=== PATIENT | female | born 1980 | race Caucasian/White ===

== ENCOUNTER 2017-07-30 22:28 | Emergency (ER) | payer SELFPAY ==
[~2017-07-30] VITALS: Ht 167.6 cm; Wt 78.0 kg
[2017-07-30 22:37] VITALS: Ht 167.6 cm; Wt 78.0 kg
[2017-07-31 00:19] LABS: URINE BLOOD (Dip) POC Negative (NEGATIVE)
[2017-07-31] MEDS ORDERED: SOD CHLORIDE 0.9% 1,000 ML IV STA (00:19)
[2017-07-31] MEDS ORDERED: morphine 4 MG/ML VIAL IV STA ×2 (00:19→01:26)
[2017-07-31] MEDS ORDERED: ONDANSETRON 4 MG INJ IV STA (00:19)
[2017-07-31 01:36] LABS: BASOPHIL # 0.1 10^3/ul (0.0-0.1); BASOPHILS % 0.5 % (0.0-2.0); EOSINOPHILS # 0.3 10^3/ul (0.0-0.5); EOSINOPHILS % 2.8 % (0.0-7.0); HEMATOCRIT 42.9 % (37.0-47.0); HEMOGLOBIN 15.2 g/dl (12.0-16.0); LYMPHOCYTES # 4.4 10^3/ul (0.8-2.9); MEAN CORPUSCULAR HEMOGLOBIN 32.6 pg (29.0-33.0); MEAN CORPUSCULAR HGB CONC 35.4 g/dl (32.0-37.0); MEAN CORPUSCULAR VOLUME 92.1 fl (82.0-101.0); MEAN PLATELET VOLUME 10.7 fl (7.4-10.4); MONOCYTES % 8.5 % (0.0-11.0); NEUTROPHIL # 6.3 10^3/ul (1.6-7.5); NEUTROPHILS % 51.9 % (39.0-77.0); PLATELET COUNT 310 10^3/UL (140-415); RED BLOOD COUNT 4.66 10^6/ul (4.20-5.40); RED CELL DISTRIBUTION WIDTH 12.1 % (11.5-14.5); WHITE BLOOD COUNT 12.2 10^3/ul (4.8-10.8)
[2017-07-31 01:38] LABS: ADD UMIC NO; UR ASCORBIC ACID NEGATIVE (NEGATIVE); UR BILIRUBIN (Dip) NEGATIVE (NEGATIVE); UR BLOOD (Dip) NEGATIVE (NEGATIVE); UR CLARITY CLEAR (CLEAR); UR COLOR STRAW (YELLOW); UR GLUCOSE (Dip) NEGATIVE (NEGATIVE); UR KETONES (Dip) NEGATIVE (NEGATIVE); UR LEUKOCYTE ESTERASE (Dip) NEGATIVE Leu/ul (NEGATIVE); UR NITRITE (Dip) NEGATIVE (NEGATIVE); UR SPECIFIC GRAVITY (Dip) 1.005 (1.003-1.030); UR TOTAL PROTEIN (Dip) NEGATIVE (NEGATIVE); UR UROBILINOGEN (Dip) NEGATIVE (NEGATIVE)
--- NOTE | 2017-07-31 01:41 | ERD ---
ER Documentation Chief Complaint Chief Complaint c/o epigastric pain x 1 wk. HPI 36-year-old female presenting to emergency department with abdominal pain and abdominal distention. Patient reports pain starts in the epigastric region and radiates to pelvic area. Patient denies fever chills. No vomiting or diarrhea. Patient states she feels bloated and feels "something moving inside of her." Patient states her last menstrual period was approximately 5 years ago and states she had her uterus removed. Limited history due to patient's condition. ROS All systems reviewed and are negative except as per history of present illness. Medications Home Meds Active Scripts Tamsulosin Hcl* (Flomax*) 0.4 Mg Cap.er.24h, 0.4 MG PO DAILY, #7 CAP Prov:NORRIS KILPATRICK NP 07/31/17 Ibuprofen* (Motrin*) 600 Mg Tab, 600 MG PO Q6, #30 TAB Prov:NORRIS KILPATRICK NP 07/31/17 Hydrocodone/Acetaminophen ([place] 5-325 Tablet) 1 Each Tablet, 1 TAB PO Q6H Y for PAIN, #15 TAB Prov:NORRIS KILPATRICK NP 07/31/17 Allergies Allergies: Coded Allergies: No Known Allergy (Unverified , 07/30/17) PMhx/Soc Medical and Surgical Hx: pt denies Medical Hx, pt denies Surgical Hx History of Surgery: No Anesthesia Reaction: No Hx Neurological Disorder: No Hx Respiratory Disorders: No Hx Cardiac Disorders: No Hx Psychiatric Problems: No Hx Miscellaneous Medical Probl: No Hx Alcohol Use: No Hx Substance Use: No Hx Tobacco Use: No Smoking Status: Never smoker Physical Exam Vitals Vital Signs Date Time Temp Pulse Resp B/P Pulse Ox O2 Delivery O2 Flow Rate FiO2 07/31/17 02:46 98.4 108 16 113/63 99 Room Air 07/30/17 22:37 98.4 119 20 119/82 97 Physical Exam Const: Alert, in acute distress, pacing around room Head: Atraumatic Eyes: Normal Conjunctiva ENT: Normal External Ears, Nose and Mouth. Neck: Full range of motion..~ No meningismus. Resp: Clear to auscultation bilaterally Cardio: Regular rate and rhythm, no murmurs Abd: Soft, Distention. Normal bowel sounds.Negative Rubio sign. No McBurney point tenderness.No rebound tenderness. No peritoneal signs. Skin: No petechiae or rashes Back: No midline or flank tenderness Ext: No cyanosis, or edema Neur: Awake and alert Psych: Normal Mood and Affect Result Diagram: 07/31/17 0045 07/31/17 0045 Results 24 hrs Laboratory Tests Test 07/31/17 00:17 07/31/17 00:25 07/31/17 00:45 Bedside Urine pH (LAB) 6.0 Bedside Urine Protein (LAB) Negative Bedside Urine Glucose (UA) Negative Bedside Urine Ketones (LAB) Negative Bedside Urine Blood Negative Bedside Urine Nitrite (LAB) Negative Bedside Urine Leukocyte Esterase (L Negative Urine Color STRAW Urine Clarity CLEAR Urine pH 6.0 Urine Specific [place] 1.005 Urine Ketones NEGATIVEmg/dL Urine Nitrite NEGATIVEmg/dL Urine Bilirubin NEGATIVEmg/dL Urine Urobilinogen NEGATIVEmg/dL Urine Leukocyte Esterase NEGATIVELeu/ul Urine Hemoglobin NEGATIVEmg/dL Urine Glucose NEGATIVEmg/dL Urine Total Protein NEGATIVEmg/dl White Blood Count 12.210^3/ul Red Blood Count 4.6610^6/ul Hemoglobin 15.2g/dl Hematocrit 42.9% Mean Corpuscular Volume 92.1fl Mean Corpuscular Hemoglobin 32.6pg Mean Corpuscular Hemoglobin Concent 35.4g/dl Red Cell Distribution Width 12.1% Platelet Count 54386^3/UL Mean Platelet Volume 10.7fl Neutrophils % 51.9% Lymphocytes % 36.0% Monocytes % 8.5% Eosinophils % 2.8% Basophils % 0.5% Nucleated Red Blood Cells % 0.0/100WBC Neutrophils # 6.310^3/ul Lymphocytes # 4.410^3/ul Monocytes # 1.010^3/ul Eosinophils # 0.310^3/ul Basophils # 0.110^3/ul Nucleated Red Blood Cells # 0.010^3/ul Sodium Level 138mmol/L Potassium Level 3.8mmol/L Chloride Level 102mmol/L Carbon Dioxide Level 23mmol/L Anion Gap 17 Blood Urea Nitrogen 9mg/dl Creatinine 0.77mg/dl Glucose Level 91mg/dl Calcium Level 9.6mg/dl Total Bilirubin 0.7mg/dl Direct Bilirubin 0.00mg/dl Indirect Bilirubin 0.7mg/dl Aspartate Amino Transf (AST/SGOT) 33IU/L Alanine Aminotransferase (ALT/SGPT) 45IU/L Alkaline Phosphatase 53IU/L Total Protein 8.8g/dl Albumin 4.8g/dl Globulin 4.00g/dl Albumin/Globulin Ratio 1.20 Lipase 52U/L Serum HCG, Qualitative NEGATIVE Current Medications Medications (Trade) Dose Ordered Sig/Hans Route PRN Reason Start Time Stop Time Status Last Admin Dose Admin Sodium Chloride (NS) 1,000 ml @ 1,000 mls/hr Q1H STAT IV 07/31/17 00:19 07/31/17 01:18 DC 07/31/17 00:32 Morphine Sulfate (morphine) 4 mg ONCE STAT IV 07/31/17 00:19 07/31/17 00:22 DC 07/31/17 00:33 Ondansetron HCl (Zofran Inj) 4 mg ONCE STAT IV 07/31/17 00:19 07/31/17 00:22 DC 07/31/17 00:32 Morphine Sulfate (morphine) 4 mg ONCE STAT IV 07/31/17 01:26 07/31/17 01:27 DC 07/31/17 01:30 Ketorolac Tromethamine (Toradol) 30 mg ONCE STAT IV 07/31/17 01:50 07/31/17 01:51 DC 07/31/17 01:53 Hydromorphone HCl (Dilaudid) 0.5 mg ONCE STAT IV 07/31/17 02:11 07/31/17 02:14 DC Hydromorphone HCl (Dilaudid) 1 mg ONCE STAT IV 07/31/17 02:12 07/31/17 02:14 DC 07/31/17 02:17 Procedures/MDM DIAGNOSTIC IMAGING REPORT Patient: DANYA MONTALVO : 1980 Age: 36 Sex: F MR #: [id number] DOS: 07/31/17 0032 Ordering MD: NORRIS MOSES NP Location: [facility] Room/Bed: PROCEDURE: US Non-OB Pelvis. CLINICAL INDICATION: Pelvic pain, distension. History of hysterectomy TECHNIQUE: Multiple sonographic images of the pelvis were obtained utilizing a transabdominal and endovaginal technique. The images were reviewed on a PACS workstation. COMPARISON: None. FINDINGS: The uterus is not visualized. The right ovary measures 3.4 x 2.1 x 2.5 cm. The left ovary is not visualized. Blood flow is demonstrated to the right ovary. No adnexal masses are noted. There is no evidence of free fluid. IMPRESSION: 1. Status post hysterectomy. 2. Normal appearance of the right ovary. 3. The left ovary is not visualized. DIAGNOSTIC IMAGING REPORT Patient: DANYA MONTALVO : 1980 Age: 36 Sex: F MR #: [id number] DOS: 07/31/17 0019 Ordering MD: NORRIS MOSES NP Location: [facility] Room/Bed: PROCEDURE: CT ABDOMEN/PELVIS WITHOUT CONTRAST CLINICAL INDICATION: 36-year-old female with abdominal pain. TECHNIQUE: The study was performed utilizing a [employer] 64-slice CT scanner. Direct axial sections were obtained through the abdomen and pelvis without the use of intravenous contrast material. Sagittal and coronal reformations were obtained. One or more of the following dose reduction techniques were utilized: automated exposure control, adjustment of the mA and/ or kV according to patient's size and/or the use of iterative reconstruction technique. The images were reviewed on a PACS workstation. CTD/vol = 11.0 mGy ; Total Exam DLP = 583.6 mGy-cm. COMPARISON: None. FINDINGS: The lung bases are unremarkable. There is no evidence for significant pleural effusion. The liver has a normal size and contour without focal areas of abnormal density. No intrahepatic nor extrahepatic biliary ductal dilatation is seen. The gallbladder is not visualized presumably from prior surgical removal. The pancreas is without areas of abnormal attenuation. The spleen is identified and has a normal size without abnormal density. The adrenal glands are unremarkable. There is a punctate nonobstructing right lower pole renal janine calculus. The left kidney is without abnormal density, calculi or obstruction. The urinary bladder contains urine. There is mild retained stool within the ascending and transverse colon without obstruction. The appendix is visualized and is without abnormal thickening or surrounding inflammatory reaction. The uterus is not visualized consistent with prior hysterectomy. Phleboliths are seen within the pelvis. There is no significant free fluid. The aortoiliac vessels are without aneurysmal dilatation. The osseous structures are intact. IMPRESSION: 1. Punctate nonobstructing right lower pole renal janine calculus. 2. Mild retained stool within the proximal colon without obstruction. 3. No CT evidence for appendicitis. 4. Prior cholecystectomy. 5. Status post hysterectomy. MDM: This is a 36-year-old female presenting to emergency department with generalized abdominal pain and abdominal distention 1 week. Patient is afebrile. Patient has tachycardia upon arrival. Patient denies being despite being distended. Urine dip and prior negative. IV access obtained and labs drawn. Patient given Morphine 4mg IV and Zofran 4mg IV. Given 1L IV fluid bolus of normal saline. CBC shows slightly elevated WBCs at 12.2. UA is negative for infection. Pelvic ultrasound reviewed by radiologist as status post hysterectomy. Normal appearance of the right ovary. Left ovary is not visualized. Upon reassessment, patient continues to have pain, Patient given another dose of Morphine 4mg IV. CT abdomen pelvis reviewed by radiologist as puncture nonobstructing right lower pole renal calyx calculus. Mild retained stool within the proximal colon without obstruction. No CT evidence of appendicitis. Prior cholecystectomy. Status post hysterectomy. Patient given Toradol 30 mg IV and Dilaudid 1mg IV. Upon reassessment, patient resting comfortably and states pain has improved. Consulted Dr. Petty regarding this patient and we agree that she is appropriate for outpatient management with pain medications. Diagnosis is nephrolithiasis. Low suspicion for obstructive uropathy, acute kidney failure, pyelonephritis, UTI or sepsis. Patient is appropriate for outpatient management and will be given prescription for [place] and Flomax. Instructed patient to return to the ED in 8 hours for abdominal pain recheck. Return to ED for any new or worsenign symptoms. Patient verbalizes understanding. All questions answered at discharge. Korean translation used during this encounter. Departure Diagnosis: Primary Impression: Abdominal pain Abdominal location: generalized Qualified Code: R10.84 - Generalized abdominal pain Additional Impression: Nephrolithiasis Condition: Stable NORRIS KILPATRICK NP Jul 31, 2017 01:41
--- NOTE | 2017-07-31 01:44 | RADRPT ---
PROCEDURE: US Non-OB Pelvis. CLINICAL INDICATION: Pelvic pain, distension. History of hysterectomy TECHNIQUE: Multiple sonographic images of the pelvis were obtained utilizing a transabdominal and endovaginal technique. The images were reviewed on a PACS workstation. COMPARISON: None. FINDINGS: The uterus is not visualized. The right ovary measures 3.4 x 2.1 x 2.5 cm. The left ovary is not visualized. Blood flow is demon strated to the right ovary. No adnexal masses are noted. There is no evidence of free fluid. IMPRESSION: 1. Status post hysterectomy. 2. Normal appearance of the right ovary. 3. The left ovary is not visualized. RPTAT: HTAR .Samm Lopez MD, MD Date Time Electronically viewed and signed by .Samm Lopez MD, on 07/31/2017 01:44 .R/
--- NOTE | 2017-07-31 01:49 | RADRPT ---
PROCEDURE: CT ABDOMEN/PELVIS WITHOUT CONTRAST CLINICAL INDICATION: 36-year-old female with abdominal pain. TECHNIQUE: The study was performed utilizing a [employer] VCT 64-slice CT scanner. Direct axia l sections were obtained through the abdomen and pelvis without the use of intravenous contrast mate rial. Sagittal and coronal reformations were obtained. One or more of the following dose reduction t echniques were utilized: automated exposure control, adjustment of the mA and/or kV according to pat ient's size and/or the use of iterative reconstruction technique. The images were reviewed on a PAC S workstation. CTD/vol = 11.0 mGy; Total Exam DLP = 583.6 mGy-cm. COMPARISON: None. FINDINGS: The lung bases are unremarkable. There is no evidence for significant pleural effusion. The liver has a normal size and contour without focal areas of abnormal density. No intrahepatic nor extrahepa tic biliary ductal dilatation is seen. The gallbladder is not visualized presumably from prior surgi therese removal. The pancreas is without areas of abnormal attenuation. The spleen is identified and riley s a normal size without abnormal density. The adrenal glands are unremarkable. There is a punctate n onobstructing right lower pole renal jnaine calculus. The left kidney is without abnormal density, ca lculi or obstruction. The urinary bladder contains urine. There is mild retained stool within the as cending and transverse colon without obstruction. The appendix is visualized and is without abnorma l thickening or surrounding inflammatory reaction. The uterus is not visualized consistent with prio r hysterectomy. Phleboliths are seen within the pelvis. There is no significant free fluid. The aortoiliac vessels are without aneurysmal dilatation. The osseous structures are intact. IMPRESSION: 1. Punctate nonobstructing right lower pole renal janine calculus. 2. Mild retained stool within the proximal colon without obstruction. 3. No CT evidence for appendicitis. 4. Prior cholecystectomy. 5. Status post hysterectomy. .Shane Gamez MD, Date Time Electronically viewed and signed by .Shane Gamez MD, MD on 07/31/2017 01:48 .M/
[2017-07-31 01:50] LABS: ALBUMIN 4.8 g/dl (3.3-4.9); ALBUMIN/GLOBULIN RATIO 1.2; BILIRUBIN,INDIRECT 0.7 mg/dl (0-1.1); BILIRUBIN,TOTAL 0.7 mg/dl (0.2-1.3); CALCIUM 9.6 mg/dl (8.4-10.2); CREATININE 0.77 mg/dl (0.44-1.00); POTASSIUM 3.8 mmol/L (3.5-5.1); TOTAL PROTEIN 8.8 g/dl (6.1-8.1)
[2017-07-31] MEDS ORDERED: KETOROLAC 30 MG INJ IV STA (01:50)
[2017-07-31] MEDS ORDERED: IBUP-1542 PO (02:01)
[2017-07-31] MEDS ORDERED: HYDR-906 PO (02:01)
[2017-07-31] MEDS ORDERED: TAMS-14 PO (02:03)
[2017-07-31] MEDS ORDERED: HYDROmorphONE 0.5 MG/0.5 ML SYG IV STA (02:11)
[2017-07-31] MEDS ORDERED: HYDROmorphONE 1 MG/ML SYG IV STA (02:12)
[2017-07-31 02:46] VITALS: BP 113/63; PULSE 108; RESP 16; TEMP 98.4
== END 2017-07-31 02:46 | disposition home or self-care (01) ==
LOC: FTE 22:28
DX: N20.0 Calculus of kidney (principal); R10.2 Pelvic and perineal pain
CPT/HCPCS: 36415; 74176; 76830; 76856; 80053; 81003; 83690; 84703; 85025; 96374; 96375; 96376; 99285; J1170; J1885; J2270; J2405; J7030